=== PATIENT | male | born 1960 | race Caucasian/White ===

== ENCOUNTER → 2021-08-27 | Outpatient (CLI) | payer MEDICARE, OTHER ==
[~2021-08-27] MED LIST: ATOR40TA; AZIT250 PO; CLIN300 PO; CRUTCH USE; HYDACE25S PR; HYDACE5 PO; INCARCERATION; META800 PO; NAPR500EC PO; OXYACE5T PO; OXYC5 PO; RXERYTOPTH OP; RXHYD5325 PO; [UNRECOGNIZED DRUG - REMARK]
[2021-08-27 15:42] LABS: Alanine Aminotransfer (ALT/SGP 19 U/L (12-78); Albumin, Blood 4.3 g/dL (3.4-5.0); Albumin/Globulin Ratio 1.2 (0.8-1.8); Alk Phos 76 U/L (50-136); Anion Gap 4 mmol/L (6-16); Aspartate Aminotrans (AST/SGOT 19 U/L (12-37); Blood Urea Nitrogen 13 mg/dL (8-24); Bun/Creatinine Ratio 15.1 (12.0-20.0); CHOL/HDL RATIO 3.6; CO2, Blood 27 mmol/L (21-32); Calcium, Blood 9.1 mg/dL (8.5-10.1); Chloride, Blood 109 mmol/L (98-108); Cholesterol 214 mg/dL (50-200); Creatinine, Blood 0.86 mg/dL (0.60-1.20); Globulin, Blood 3.6 g/dL (2.2-4.0); Glomerular Filtration Rate 98 (60-); Glucose, Blood 99 mg/dL (70-99); HDL Cholesterol 59 mg/dL (>39); Low Density Lipoprotein Chol 117 mg/dL (0-110); Potassium, Blood 4.4 mmol/L (3.5-5.5); Sodium, Blood 140 mmol/L (136-145); Total Protein, Blood 7.9 g/dL (6.4-8.2); Triglycerides 188 mg/dL (30-160); Very Low Density Lipoprot Chol 37 mg/dL (6-32)
[2021-08-27 15:43] LABS: BASOPHILS ABSOLUTE AUTO 0.06 K/mm3 (0.00-0.23); BASOPHILS PERCENT AUTO 1 % (0-2); EOSINOPHILS ABSOLUTE AUTO 0.29 K/mm3 (0.00-0.68); EOSINOPHILS PERCENT AUTO 5 % (0-6); Hematocrit 47.8 % (37.0-53.0); Hemoglobin 15.6 g/dL (13.5-17.5); IMMATURE GRAN ABSOLUTE AUTO 0.04 K/mm3 (0.00-0.10); IMMATURE GRAN PERCENT AUTO 1 % (0-1); LYMPHOCYTES ABSOLUTE AUTO 1.88 K/mm3 (0.84-5.20); LYMPHOCYTES PERCENT AUTO 31 % (21-46); MONOCYTES ABSOLUTE AUTO 0.64 K/mm3 (0.16-1.47); MONOCYTES PERCENT AUTO 10 % (4-13); Mean Corpuscular HGB 30.5 pg (26.0-34.0); Mean Corpuscular HGB Conc 32.6 g/dL (31.5-36.5); Mean Corpuscular Volume 94 fL (80-100); Mean Platelet Volume 10.7 fL (9.1-12.4); NEUTROPHILS ABSOLUTE AUTO 3.22 K/mm3 (1.96-9.15); NEUTROPHILS PERCENT AUTO 53 % (41-73); Platelet Count 242 K/mm3 (150-400); RDW Coefficient Variation 13.2 % (11.7-14.2); RDW Standard Deviation 45.1 fL (35.1-46.3); Red Blood Cell Count 5.11 M/mm3 (4.30-5.90); White Blood Cell Count 6.13 K/mm3 (4.00-11.30)
[2021-08-27 15:48] LABS: Bilirubin, Total 0.7 mg/dL (0.1-1.0)
== END ==
LOC: LAB SHORT 14:41
PROVIDERS: Internal Medicine
DX: Z12.5 Encounter for screening for malignant neoplasm of prostate (principal); D64.9 Anemia, unspecified; E78.2 Mixed hyperlipidemia
CPT/HCPCS: 80053; 80061; 85025; G0103

== ENCOUNTER → 2022-05-26 | Outpatient (CLI) | payer MEDICARE, OTHER ==
[2022-05-26 19:55] LABS: BASOPHILS ABSOLUTE AUTO 0.03 K/mm3 (0.00-0.23); BASOPHILS PERCENT AUTO 1 % (0-2); EOSINOPHILS PERCENT AUTO 4 % (0-6); Hematocrit 42.9 % (37.0-53.0); Hemoglobin 14.2 g/dL (13.5-17.5); IMMATURE GRAN ABSOLUTE AUTO 0.01 K/mm3 (0.00-0.10); IMMATURE GRAN PERCENT AUTO 0 % (0-1); LYMPHOCYTES ABSOLUTE AUTO 1.55 K/mm3 (0.84-5.20); LYMPHOCYTES PERCENT AUTO 29 % (21-46); MONOCYTES ABSOLUTE AUTO 0.55 K/mm3 (0.16-1.47); MONOCYTES PERCENT AUTO 10 % (4-13); Mean Corpuscular HGB 30.8 pg (26.0-34.0); Mean Corpuscular HGB Conc 33.1 g/dL (31.5-36.5); Mean Corpuscular Volume 93 fL (80-100); Mean Platelet Volume 11.2 fL (9.1-12.4); NEUTROPHILS ABSOLUTE AUTO 2.98 K/mm3 (1.96-9.15); NEUTROPHILS PERCENT AUTO 56 % (41-73); Platelet Count 246 K/mm3 (150-400); RDW Standard Deviation 43.9 fL (35.1-46.3); Red Blood Cell Count 4.61 M/mm3 (4.30-5.90); White Blood Cell Count 5.32 K/mm3 (4.00-11.30)
[2022-05-26 21:34] LABS: Alanine Aminotransfer (ALT/SGP 21 U/L (12-78); Albumin, Blood 4.1 g/dL (3.4-5.0); Albumin/Globulin Ratio 1.2 (0.8-1.8); Alk Phos 74 U/L (50-136); Anion Gap 7 mmol/L (6-16); Aspartate Aminotrans (AST/SGOT 23 U/L (12-37); Bilirubin, Total 0.7 mg/dL (0.1-1.0); Blood Urea Nitrogen 16 mg/dL (8-24); Bun/Creatinine Ratio 16.2 (12.0-20.0); CO2, Blood 22 mmol/L (21-32); Calcium, Blood 9.1 mg/dL (8.5-10.1); Chloride, Blood 108 mmol/L (98-108); Cholesterol 155 mg/dL (50-200); Creatinine, Blood 0.99 mg/dL (0.60-1.20); Globulin, Blood 3.5 g/dL (2.2-4.0); Glomerular Filtration Rate 86 (60-); Glucose, Blood 101 mg/dL (70-99); HDL Cholesterol 52 mg/dL (>39); LDL/HDL RATIO 1.6; Low Density Lipoprotein Chol 82 mg/dL (0-110); Potassium, Blood 4.7 mmol/L (3.5-5.5); Sodium, Blood 137 mmol/L (136-145); Total Protein, Blood 7.6 g/dL (6.4-8.2); Triglycerides 104 mg/dL (30-160); Very Low Density Lipoprot Chol 20 mg/dL (6-32)
== END | disposition home or self-care (01) ==
LOC: LAB SHORT 17:53 → LAB 17:53
PROVIDERS: Internal Medicine
DX: I48.91 Unspecified atrial fibrillation (principal); E78.2 Mixed hyperlipidemia
CPT/HCPCS: 80053; 80061; 84443; 85025

== ENCOUNTER → 2023-12-02 | Outpatient (CLI) | payer MEDICARE, OTHER ==
[2023-12-02 20:00] LABS: Anion Gap 8 mmol/L (3-11); Blood Urea Nitrogen 22 mg/dL (8-24); Bun/Creatinine Ratio 16.2 (12.0-20.0); CO2, Blood 29 mmol/L (21-32); Calcium, Blood 8.9 mg/dL (8.5-10.1); Chloride, Blood 105 mmol/L (98-108); Creatinine, Blood 1.36 mg/dL (0.60-1.20); Glomerular Filtration Rate 58 (60-); Glucose, Blood 100 mg/dL (70-99); Magnesium, Blood 2.2 mg/dL (1.6-2.4); Potassium, Blood 4.7 mmol/L (3.5-5.5); Sodium, Blood 137 mmol/L (136-145)
== END ==
LOC: LAB SHORT 17:47 → LAB 17:47
PROVIDERS: Internal Medicine
DX: I50.22 Chronic systolic (congestive) heart failure (principal)
CPT/HCPCS: 80069; 83735; 83880

== ENCOUNTER 2025-01-14 11:22 | Inpatient (IN) | payer MEDICARE, OTHER ==
[~2025-01-14] VITALS: Ht 185.4 cm; Wt 60.5 kg
[2025-01-14 11:47] LABS: BASOPHILS ABSOLUTE AUTO 0.02 K/mm3 (0.00-0.23); BASOPHILS PERCENT AUTO 0 % (0-2); EOSINOPHILS ABSOLUTE AUTO 0.04 K/mm3 (0.00-0.68); EOSINOPHILS PERCENT AUTO 1 % (0-6); Hematocrit 44.0 % (37.0-53.0); Hemoglobin 14.8 g/dL (13.5-17.5); IMMATURE GRAN ABSOLUTE AUTO 0.05 K/mm3 (0.00-0.10); IMMATURE GRAN PERCENT AUTO 1 % (0-1); LYMPHOCYTES ABSOLUTE AUTO 0.87 K/mm3 (0.84-5.20); LYMPHOCYTES PERCENT AUTO 13 % (21-46); MONOCYTES ABSOLUTE AUTO 0.73 K/mm3 (0.16-1.47); MONOCYTES PERCENT AUTO 11 % (4-13); Mean Corpuscular HGB Conc 33.6 g/dL (31.5-36.5); Mean Corpuscular Volume 95 fL (80-100); NEUTROPHILS ABSOLUTE AUTO 4.87 K/mm3 (1.96-9.15); NEUTROPHILS PERCENT AUTO 74 % (41-73); NRBC ABSOLUTE 0.00 K/mm3 (0.00-0.02); NRBC Auto 0.0 /100 WBC (0.0-0.2); Platelet Count 238 K/mm3 (150-400); RDW Coefficient Variation 15.1 % (11.7-14.2); RDW Standard Deviation 51.5 fL (35.1-46.3)
[2025-01-14] MEDS ORDERED: Metoprolol Tartrate 1 MG/ML 5 ML VIAL IV PRN (11:50)
[2025-01-14] MEDS ORDERED: FentaNYL Citrate 50 MCG/ML 2 ML Injection IV ONE (12:10)
[2025-01-14 12:17] LABS: Alanine Aminotransfer (ALT/SGP 45.0 U/L (12-78); Albumin, Blood 4.0 g/dL (3.4-5.0); Albumin/Globulin Ratio 0.9 (0.8-1.8); Anion Gap 12.0 mmol/L (3-11); Aspartate Aminotrans (AST/SGOT 66.0 U/L (12-37); Bilirubin, Total 1.4 mg/dL (0.1-1.0); Blood Urea Nitrogen 31.0 mg/dL (8-24); CO2, Blood 22.0 mmol/L (21-32); Calcium, Blood 9.3 mg/dL (8.5-10.1); Chloride, Blood 103.0 mmol/L (98-108); Creatinine, Blood 1.51 mg/dL (0.60-1.20); Globulin, Blood 4.4 g/dL (2.2-4.0); Glucose, Blood 119.0 mg/dL (70-99); Sodium, Blood 131.0 mmol/L (136-145); Total Protein, Blood 8.4 g/dL (6.4-8.2)
[2025-01-14 12:20] LABS: Potassium, Blood 6.1 mmol/L (3.5-5.5)
[2025-01-14 12:26] LABS: D-Dimer, Quantitative 3.89 mg/L FEU (0.00-0.52); Prothrombin Time Results 13.9 Sec (9.7-11.5)
[2025-01-14 12:56] LABS: Anion Gap 13.0 mmol/L (3-11); Blood Urea Nitrogen 32.0 mg/dL (8-24); CO2, Blood 21.0 mmol/L (21-32); Calcium, Blood 9.1 mg/dL (8.5-10.1); Chloride, Blood 104.0 mmol/L (98-108); Creatinine, Blood 1.5 mg/dL (0.60-1.20); Glucose, Blood 130.0 mg/dL (70-99); Potassium, Blood 5.4 mmol/L (3.5-5.5); Sodium, Blood 133.0 mmol/L (136-145)
[2025-01-14] MEDS ORDERED: FURO20 PO (13:30)
[2025-01-14] MEDS ORDERED: LISI5 PO (13:30)
[2025-01-14] MEDS ORDERED: DILT180 PO (13:31)
[2025-01-14] MEDS ORDERED: SPIR25 PO (13:31)
[2025-01-14] MEDS ORDERED: ATOR20 PO (13:31)
[2025-01-14] MEDS ORDERED: ELIQUIS5 M2 PO (13:32)
[2025-01-14] MEDS ORDERED: ALBU90OI INH (13:33)
[2025-01-14] MEDS ORDERED: BEVESPI AEROS10.7 G1 IH (13:34)
[2025-01-14] MEDS ORDERED: FLU VACC TS2025-26(6MOS UP)/PF 45 MCG/0.5 ML SYRINGE IM SCH (15:15)
[2025-01-14] MEDS ORDERED: Tiotropium Bromide 2.5 MCG/ACT MIST INHAL (10 ACT/4 GM) INH SCH (16:00)
[2025-01-14] MEDS ORDERED: Albuterol 2.5 MG/3 ML VIAL INH SCH (16:10)
[2025-01-14 16:29] VITALS: BP 114/97
[2025-01-14] MEDS ORDERED: Furosemide 10 MG / ML 2ML Vial IV SCH (17:00)
--- NOTE | 2025-01-14 17:05 | NUR ---
PT SUMMARY PT ARRIVED IN THE ROOM VIA GURNEY FROM [facility], PT ABLE TO STAND AND TRANSFER TO PCU BED. PT C/O CHEST PRESSURE UPON ARRIVAL 7/10 HEART RATE 140-150'S AT REST, SBP 110'S, SATS ABOVE 92% ON RA, AFEBRILE. CARDIZEM GTT WAS ORDERED VERIFIED WITH DR STANTON GIVEN PT WITH PREVIOUS EF 38% FROM LAST ECHO PER EDUCATION CONSULTANT. CARDIZEM GTT STARTED AT 10MG/HR HRR STILL IN THE 140'S AT THIS TIME. PT WAS GIVEN OXYCODONE 5MG FOR BACK PAIN AND CHEST PRESSURE. PT NOW FALLING ASLEEP. PT HAS 2+ PITTING EDEMA ON BLE, LEGS ELEVATED IN PILLOWS, SCDS IN PLACE. PT NOW RESTING. CALL LIGHTS IN REACH WILL CONINUE TO MONITOR
[2025-01-14 20:00] VITALS: BP 118/88
[2025-01-15] VITALS: BP 102/91
[2025-01-15 04:00] VITALS: BP 111/87
[2025-01-15 04:09] LABS: BASOPHILS ABSOLUTE AUTO 0.04 K/mm3 (0.00-0.23); BASOPHILS PERCENT AUTO 1 % (0-2); EOSINOPHILS ABSOLUTE AUTO 0.19 K/mm3 (0.00-0.68); EOSINOPHILS PERCENT AUTO 3 % (0-6); Hematocrit 39.5 % (37.0-53.0); Hemoglobin 13.5 g/dL (13.5-17.5); IMMATURE GRAN ABSOLUTE AUTO 0.04 K/mm3 (0.00-0.10); IMMATURE GRAN PERCENT AUTO 1 % (0-1); LYMPHOCYTES ABSOLUTE AUTO 1.28 K/mm3 (0.84-5.20); LYMPHOCYTES PERCENT AUTO 23 % (21-46); MONOCYTES ABSOLUTE AUTO 0.91 K/mm3 (0.16-1.47); MONOCYTES PERCENT AUTO 16 % (4-13); Mean Corpuscular HGB Conc 34.2 g/dL (31.5-36.5); Mean Corpuscular Volume 97 fL (80-100); NEUTROPHILS ABSOLUTE AUTO 3.24 K/mm3 (1.96-9.15); NEUTROPHILS PERCENT AUTO 57 % (41-73); NRBC ABSOLUTE 0.00 K/mm3 (0.00-0.02); NRBC Auto 0.0 /100 WBC (0.0-0.2); Platelet Count 205 K/mm3 (150-400); RDW Coefficient Variation 15.4 % (11.7-14.2); RDW Standard Deviation 53.3 fL (35.1-46.3)
[2025-01-15 04:28] LABS: Alanine Aminotransfer (ALT/SGP 90.0 U/L (12-78); Albumin, Blood 3.3 g/dL (3.4-5.0); Albumin/Globulin Ratio 1.0 (0.8-1.8); Anion Gap 11.0 mmol/L (3-11); Aspartate Aminotrans (AST/SGOT 113.0 U/L (12-37); Bilirubin, Total 0.8 mg/dL (0.1-1.0); Blood Urea Nitrogen 37.0 mg/dL (8-24); CO2, Blood 25.0 mmol/L (21-32); Calcium, Blood 9.1 mg/dL (8.5-10.1); Chloride, Blood 102.0 mmol/L (98-108); Creatinine, Blood 1.72 mg/dL (0.60-1.20); Globulin, Blood 3.2 g/dL (2.2-4.0); Glucose, Blood 97.0 mg/dL (70-99); Potassium, Blood 4.9 mmol/L (3.5-5.5); Sodium, Blood 133.0 mmol/L (136-145); Total Protein, Blood 6.5 g/dL (6.4-8.2)
--- NOTE | 2025-01-15 04:45 | NUR ---
SHIFT SUMMARY LARGELY UNEEVENTFUL NIGHT. PATIENT REMAINS ON DILT DRIP. HR LOW 100S TO 1TEENS THROUGH THE NIGHT, SATS ABOVE 95%, AFEBRILE. 600 ML URINE OUTPUT. PATIENT SLEPT WELL.
[2025-01-15 07:26] VITALS: BP 111/85
[2025-01-15 11:50] VITALS: BP 120/86
[2025-01-15 14:44] VITALS: BP 113/82
--- NOTE | 2025-01-15 17:56 | NUR ---
PT SUMMARY; ECHO WAS DONE THIS MORNING. EF WAS SEVERELY LOW AT 20-25% CARDIZEM GTT WAS STOPPED PER DR [facility]. MEDICATION CHANGED WELL SEE EMAR. PT STARTED ON DIG LOAD. HRR REMAINED AFIB RATE AT THIS SEGUNDO 120'S. SBP 110-120'S, SATS ABOVE 95% ON RA, AFEBRILE. CAME IN TO VISIT ABLE TO DISCUSS PLAN WITH DR CHA. PT DENIES CHEST PAIN/PRESSURE HAS SOME HEADACHE AND BACK PAIN MEDICATED WITH OXYCODONE. PT HAS BEEN CALLING APPROPRIATELY, USES URINAL FOR VOIDING. NO OTHER ISSUES REPORTED WILL REPORT TO ONCOMING SHIFT
[2025-01-16] VITALS (7 sets, daily range): BP systolic 89–134; BP diastolic 80–107
[2025-01-16 05:06] LABS: BASOPHILS ABSOLUTE AUTO 0.03 K/mm3 (0.00-0.23); BASOPHILS PERCENT AUTO 1 % (0-2); EOSINOPHILS ABSOLUTE AUTO 0.47 K/mm3 (0.00-0.68); EOSINOPHILS PERCENT AUTO 8 % (0-6); Hematocrit 43.0 % (37.0-53.0); Hemoglobin 14.6 g/dL (13.5-17.5); IMMATURE GRAN ABSOLUTE AUTO 0.05 K/mm3 (0.00-0.10); IMMATURE GRAN PERCENT AUTO 1 % (0-1); LYMPHOCYTES ABSOLUTE AUTO 1.10 K/mm3 (0.84-5.20); LYMPHOCYTES PERCENT AUTO 19 % (21-46); MONOCYTES ABSOLUTE AUTO 0.85 K/mm3 (0.16-1.47); MONOCYTES PERCENT AUTO 15 % (4-13); Mean Corpuscular HGB Conc 34.0 g/dL (31.5-36.5); Mean Corpuscular Volume 96 fL (80-100); NEUTROPHILS ABSOLUTE AUTO 3.28 K/mm3 (1.96-9.15); NEUTROPHILS PERCENT AUTO 57 % (41-73); NRBC ABSOLUTE 0.00 K/mm3 (0.00-0.02); NRBC Auto 0.0 /100 WBC (0.0-0.2); Platelet Count 191 K/mm3 (150-400); RDW Coefficient Variation 14.9 % (11.7-14.2); RDW Standard Deviation 51.1 fL (35.1-46.3)
[2025-01-16 05:33] LABS: Anion Gap 9.0 mmol/L (3-11); Blood Urea Nitrogen 41.0 mg/dL (8-24); CO2, Blood 28.0 mmol/L (21-32); Calcium, Blood 8.7 mg/dL (8.5-10.1); Chloride, Blood 101.0 mmol/L (98-108); Creatinine, Blood 1.79 mg/dL (0.60-1.20); Glucose, Blood 88.0 mg/dL (70-99); Potassium, Blood 4.8 mmol/L (3.5-5.5); Sodium, Blood 133.0 mmol/L (136-145)
[2025-01-16] MEDS ORDERED: HYDROcodone 7.5-APAP 325 TAB PO PRN (08:50)
--- NOTE | 2025-01-16 09:59 | NUR ---
Dr. Falcon, ranch hand, here to see the patient. New orders received for amiodarone gtt.
[2025-01-16] MEDS ORDERED: Amiodarone HCl 450 MG in NS 250 ML IV SCH (10:05)
[2025-01-16] MEDS ORDERED: Amiodarone HCl 150 MG in NS 100 ML IV ONE (10:05)
[2025-01-16] MEDS ORDERED: Lidocaine 2% Viscous Soln 20 ML,Nystatin 100,000 Unit/ml Susp 20 ML,Mag Hydrox/Al Hydro... MT SCH (17:00)
--- NOTE | 2025-01-16 19:26 | NUR ---
SHIFT SUMMARY PATIENT IS ALERT AND ORIENTED, ABLE TO FOLLOW COMMANDS AND MAKE NEEDS KNOWN. VSS, TELE IN PLACE, HR 110'S, PATIENT DENIES CHEST PAIN OR PRESSURE. AMIO GTT IN PLACE, TITRATED PER EMAR. SPO2 >90% ON RA. PATIENT DENIES N/V/D. PATIENT HAS CHRONIC BACK PAIN, MEDICATED PER EMAR, REPOSITIONS ENCOURAGED. PATIENT IS A SBA TO BATHROOM FOR CORD MANAGEMENT.
--- NOTE | 2025-01-16 21:27 | NUR ---
ASSUMPTION OF CARE CARE OF PT ASSUMED FOLLOWING BEDSIDE SHIFT REPORT FROM CASSIA TESFAYE. PT LYING IN BED, IN NO APPARENT DISTRESS, AFEBRILE. AFIB ON MONITOR AT RATE OF 90-110. AMIO INFUSING AT 0.5 MG/MIN THROUGH LEFT FOREARM PIV. PT DENIES CHEST PAIN/PRESSURE OR SOB AT REST. PAIN IS 2/10 IN BACK. WILL REVIEW AND CONTINUE PLAN OF CARE.
[2025-01-17] VITALS (7 sets, daily range): BP systolic 92–115; BP diastolic 72–91
[2025-01-17 05:02] LABS: BASOPHILS ABSOLUTE AUTO 0.03 K/mm3 (0.00-0.23); BASOPHILS PERCENT AUTO 1 % (0-2); EOSINOPHILS ABSOLUTE AUTO 0.40 K/mm3 (0.00-0.68); EOSINOPHILS PERCENT AUTO 7 % (0-6); Hematocrit 41.4 % (37.0-53.0); Hemoglobin 13.8 g/dL (13.5-17.5); IMMATURE GRAN ABSOLUTE AUTO 0.05 K/mm3 (0.00-0.10); IMMATURE GRAN PERCENT AUTO 1 % (0-1); LYMPHOCYTES ABSOLUTE AUTO 1.26 K/mm3 (0.84-5.20); LYMPHOCYTES PERCENT AUTO 22 % (21-46); MONOCYTES ABSOLUTE AUTO 0.78 K/mm3 (0.16-1.47); MONOCYTES PERCENT AUTO 14 % (4-13); Mean Corpuscular HGB Conc 33.3 g/dL (31.5-36.5); Mean Corpuscular Volume 95 fL (80-100); NEUTROPHILS ABSOLUTE AUTO 3.14 K/mm3 (1.96-9.15); NEUTROPHILS PERCENT AUTO 55 % (41-73); NRBC ABSOLUTE 0.00 K/mm3 (0.00-0.02); NRBC Auto 0.0 /100 WBC (0.0-0.2); Platelet Count 203 K/mm3 (150-400); RDW Coefficient Variation 14.9 % (11.7-14.2); RDW Standard Deviation 50.6 fL (35.1-46.3)
--- NOTE | 2025-01-17 05:47 | NUR ---
SHIFT SUMMARY PT SLEEPING IN BED, AWAKES TO VOICE AND IS ALERT AND ORIENTED. AFEBRILE. CHRONIC BACK PAIN CONTROLLED SUFFICIENTLY WITH ONE DOSE OF NORCO. PT MAEW AND STEADY ON FEET. PT IN AFIB TYPE RHYTHM WITH RATE OF 78, BP STABLE 109/72. AMIO INFUSING AT 0.5 MG/MIN. NO COMPLAINTS OF CHEST PAIN/PRESSURE OR SOB DURING SHIFT. PT DENIES AB PAIN, N/V. NO BM. URINE OUTPUT 1300 ALL SHIFT. BEDSIDE SHIFT REPORT GIVEN TO ONCOMING DAY RN.
[2025-01-17 05:48] LABS: Anion Gap 13.0 mmol/L (3-11); Blood Urea Nitrogen 45.0 mg/dL (8-24); CO2, Blood 23.0 mmol/L (21-32); Calcium, Blood 8.6 mg/dL (8.5-10.1); Chloride, Blood 100.0 mmol/L (98-108); Creatinine, Blood 1.78 mg/dL (0.60-1.20); Glucose, Blood 146.0 mg/dL (70-99); Magnesium, Blood 2.4 mg/dL (1.6-2.4); Potassium, Blood 4.0 mmol/L (3.5-5.5); Sodium, Blood 132.0 mmol/L (136-145)
--- NOTE | 2025-01-17 07:46 | NUR ---
Rounded with , medical student
--- NOTE | 2025-01-17 11:15 | NUR ---
UPDATE: IV AMIODARONE STOPPED AT 1110, DAILY PO DOSE STARTED. PT REMAINS AFIB, HR 80s. DENIES CHEST PAIN/PRESSURE.
--- NOTE | 2025-01-17 14:42 | NUR ---
ASSUMPTION OF CARE: PT ARRIVED AT APPROX 1310 FROM ED VIA GURNEY. RECIEVED REPORT FROM [facility] ED RN. PT ON 5L NC, C/O SOB. PT AFIB 110-120s, DENIES CHEST PAIN/PRESSURE. PT CAME ON CARDIZEM DRIP 1OMG/HR. TITRATED PT UP TO 15MG/HR DUE TO INCREASING HR. MAP >65. OTHER VSS. PT LYING IN BED, CALL WITHIN REACH.
--- NOTE | 2025-01-17 16:51 | NUR ---
SHIFT SUMMARY: PT A/O X4, ABLE TO MAKE NEEDS KNOWN. STRENGTH EQUAL BILATERALLY. INDEP IN ROOM. ROOM AIR, SATS >94%. DENIES SOB. AFIB 80-90s, DENIES CHEST PAIN/PRESSURE. STOPPED AMIODARONE DRIP THIS SHIFT, STARTED PO DOSE. PT AFEBRILE, MAP >65, OTHER VSS. PT UNABLE TO HAVE BM THIS SHIFT, UPDATED ORDERS TO INCLUDE BOWEL CARE. GAVE PT MEDICATION THIS AFTERNOON PER EMAR. PT CURRENTLY LYING IN BED, CALL WITHIN REACH.
--- NOTE | 2025-01-17 23:45 | NUR ---
PT TO BE TRANSFERRED TO MEDICAL FLOOR ON TELE. REPORT GIVEN TO BRIEN PEREZ.
[2025-01-18 00:44] VITALS: BP 107/78
--- NOTE | 2025-01-18 01:58 | NUR ---
TRANSFER NOTE FOR 01/17/25 AT 2358, GOT REPORT FROM PCU NURSE, PT TO COME TO ROOM 364. PT ARRIVED VIA HOSPITAL BED WITH ALL PT BELONGINGS. PT IS A&OX4 AND INDEPENDENT IN THE ROOM. PT WAS ORIENTED TO ROOM, CALL LIGHT, AND STAFF. PT BELONGINGS PLACED ON COUCH IN THE ROOM. PT RESTING IN BED WITH CALL LIGHT IN REACH.
[2025-01-18 04:53] LABS: BASOPHILS ABSOLUTE AUTO 0.04 K/mm3 (0.00-0.23); BASOPHILS PERCENT AUTO 1 % (0-2); EOSINOPHILS ABSOLUTE AUTO 0.38 K/mm3 (0.00-0.68); EOSINOPHILS PERCENT AUTO 6 % (0-6); Hematocrit 42.3 % (37.0-53.0); Hemoglobin 14.2 g/dL (13.5-17.5); IMMATURE GRAN ABSOLUTE AUTO 0.04 K/mm3 (0.00-0.10); IMMATURE GRAN PERCENT AUTO 1 % (0-1); LYMPHOCYTES ABSOLUTE AUTO 1.04 K/mm3 (0.84-5.20); LYMPHOCYTES PERCENT AUTO 17 % (21-46); MONOCYTES ABSOLUTE AUTO 0.85 K/mm3 (0.16-1.47); MONOCYTES PERCENT AUTO 14 % (4-13); Mean Corpuscular HGB Conc 33.6 g/dL (31.5-36.5); Mean Corpuscular Volume 96 fL (80-100); NEUTROPHILS ABSOLUTE AUTO 3.71 K/mm3 (1.96-9.15); NEUTROPHILS PERCENT AUTO 61 % (41-73); NRBC ABSOLUTE 0.00 K/mm3 (0.00-0.02); NRBC Auto 0.0 /100 WBC (0.0-0.2); Platelet Count 214 K/mm3 (150-400); RDW Coefficient Variation 15.1 % (11.7-14.2); RDW Standard Deviation 51.5 fL (35.1-46.3)
--- NOTE | 2025-01-18 04:55 | NUR ---
SHIFT SUMMARY PT WAS A PCU TRANSFER AT 2358 LAST NIGHT. PT ALERT ORIENTED X 4 ABLE TO VERBALIZE NEEDS. GETS UP IN ROOM AD RACHEL. VSS ON RA SATTING AT 96%. REMAINS ON TELEMETRY AT A FLUTTER AT 88. NO C/O SOB THIS SHIFT. HES DUE TO BE DISCHARGED TO HOME TODAY. RESTING IN BED AT THIS TIME WITH CALL LIGHT IN REACH
[2025-01-18 05:20] LABS: Anion Gap 10.0 mmol/L (3-11); Blood Urea Nitrogen 43.0 mg/dL (8-24); CO2, Blood 27.0 mmol/L (21-32); Calcium, Blood 8.9 mg/dL (8.5-10.1); Chloride, Blood 103.0 mmol/L (98-108); Creatinine, Blood 1.73 mg/dL (0.60-1.20); Glucose, Blood 98.0 mg/dL (70-99); Magnesium, Blood 2.7 mg/dL (1.6-2.4); Potassium, Blood 4.9 mmol/L (3.5-5.5); Sodium, Blood 135.0 mmol/L (136-145)
[2025-01-18 05:38] VITALS: BP 103/83
[2025-01-18 07:39] VITALS: BP 101/82
[2025-01-18] MEDS ORDERED: Amiodarone HCl200 MG PO (11:08)
[2025-01-18] MEDS ORDERED: CARV6.25 PO (11:09)
[2025-01-18] MEDS ORDERED: SENN187 PO (11:09)
--- NOTE | 2025-01-18 13:25 | NUR ---
Patient discharged home with spouse. Patient was directed to stop at Security office by ER entrance to retrieve his "knife" and other possessions. IV's to bilateral arms removed with tips intact. Education/instruction discussed with patient prior to his leaving. New rx's faxed to [facility] per his preference. Patient transported via wheelchair to front entrance at 1306.
== END 2025-01-18 13:30 | disposition home or self-care (01) | DRG 291 ==
LOC: ER 11:22 → PCU 11:23 → ER 11:23 → PCU 11:23 → MEDS 01-15 15:34 → PCU 01-15 15:34 → MEDS 01-17 23:58
PROVIDERS: Emergency Medicine; Student in an Organized Health Care Education/Training Program; ADMIT Internal Medicine
DX: I13.0 Hypertensive heart and chronic kidney disease with heart failure and stage 1 through stage 4 chronic kidney disease, or unspecified chronic kidney disease (principal); I50.23 Acute on chronic systolic (congestive) heart failure; N17.9 Acute kidney failure, unspecified; I48.19 Other persistent atrial fibrillation; I48.92 Unspecified atrial flutter; E78.5 Hyperlipidemia, unspecified; J43.9 Emphysema, unspecified; M54.50 Low back pain, unspecified; I34.0 Nonrheumatic mitral (valve) insufficiency; J44.89 Other specified chronic obstructive pulmonary disease; N18.31 Chronic kidney disease, stage 3a; G89.29 Other chronic pain; Z88.8 Allergy status to other drugs, medicaments and biological substances; Z79.891 Long term (current) use of opiate analgesic; Z87.81 Personal history of (healed) traumatic fracture; Z79.899 Other long term (current) drug therapy; Z79.51 Long term (current) use of inhaled steroids; Z79.01 Long term (current) use of anticoagulants; Z79.82 Long term (current) use of aspirin; Z23 Encounter for immunization
CPT/HCPCS: 36415; 71045; 71260; 80048; 80053; 83690; 83735; 83880; 84484; 85025; 85379; 85610; 93005; 93010; 93306; 94640; 94664; 94762; 96374-59; 96375; 96375-59; 96376; 99285-25; A9270; G0378; J0282; J1160; J1938; J3010; J7050; Q9967

== ENCOUNTER → 2025-01-27 | Outpatient (CLI) | payer MEDICARE, OTHER ==
[~2025-01-27] MED LIST changes: +ALBU90OI INH; +ATOR20 PO; +Amiodarone HCl200 MG PO; +BEVESPI AEROS10.7 G1 IH; +CARV6.25 PO; +DILT180 PO; +ELIQUIS5 M2 PO; +FURO20 PO; +LISI5 PO; +SENN187 PO; +SPIR25 PO
[2025-01-27 19:09] LABS: Albumin, Blood 3.6 g/dL (3.4-5.0); Anion Gap 6 mmol/L (3-11); Blood Urea Nitrogen 30 mg/dL (8-24); CO2, Blood 31 mmol/L (21-32); Calcium, Blood 9.1 mg/dL (8.5-10.1); Chloride, Blood 106 mmol/L (98-108); Creatinine, Blood 1.53 mg/dL (0.60-1.20); Glucose, Blood 86 mg/dL (70-99); Phosphorus, Blood 3.2 mg/dL (2.5-4.9); Potassium, Blood 4.6 mmol/L (3.5-5.5); Sodium, Blood 138 mmol/L (136-145)
== END | disposition home or self-care (01) ==
LOC: LAB SHORT 17:33 → LAB 17:33
PROVIDERS: Internal Medicine
DX: I50.22 Chronic systolic (congestive) heart failure (principal)
CPT/HCPCS: 80069; 83880

== ENCOUNTER → 2025-03-01 | Outpatient (CLI) | payer MEDICARE, OTHER ==
[2025-03-01 20:59] LABS: Alanine Aminotransfer (ALT/SGP 24.0 U/L (12-78); Albumin, Blood 3.6 g/dL (3.4-5.0); Albumin/Globulin Ratio 1.0 (0.8-1.8); Anion Gap 9.0 mmol/L (3-11); Aspartate Aminotrans (AST/SGOT 23.0 U/L (12-37); Bilirubin, Total 0.6 mg/dL (0.1-1.0); Blood Urea Nitrogen 36.0 mg/dL (8-24); CO2, Blood 28.0 mmol/L (21-32); Calcium, Blood 8.9 mg/dL (8.5-10.1); Chloride, Blood 103.0 mmol/L (98-108); Creatinine, Blood 1.78 mg/dL (0.60-1.20); Globulin, Blood 3.7 g/dL (2.2-4.0); Glucose, Blood 130.0 mg/dL (70-99); Magnesium, Blood 2.4 mg/dL (1.6-2.4); Phosphorus, Blood 4.1 mg/dL (2.5-4.9); Potassium, Blood 4.8 mmol/L (3.5-5.5); Sodium, Blood 135.0 mmol/L (136-145); Total Protein, Blood 7.3 g/dL (6.4-8.2)
== END ==
LOC: LAB SHORT 17:52 → LAB 17:52
PROVIDERS: Internal Medicine
DX: I50.22 Chronic systolic (congestive) heart failure (principal)
CPT/HCPCS: 80053; 83735; 83880; 84100